=== PATIENT | female | born 1990 | race Two or more races ===

== ENCOUNTER 2023-10-13 08:50 | Emergency (ER) | payer OTHER, MEDICAID ==
[~2023-10-13] VITALS: Ht 160 cm; Wt 54.4 kg
[2023-10-13] MEDS ORDERED: CEPHALEXIN MONOHYDRATE 500 MG CAPSULE PO ONE (09:28)
[2023-10-13] MEDS: CEPHALEXIN MONOHYDRATE 500 MG CAPSULE PO ONE (09:30)
[2023-10-13 10:09] LABS: APPEARANCE,URINE CLEAR (CLEAR); BILIRUBIN,URINE NEGATIVE (NEGATIVE); BLOOD, URINE 1+ Ery/uL (NEGATIVE); COLOR,URINE YELLOW (YELLOW); KETONES,URINE NEGATIVE (NEGATIVE); LEUKOCYTE ESTERASE ,URINE TRACE (NEGATIVE); NITRITE, URINE NEGATIVE (NEGATIVE); PH,URINE 6.5 (5.0-8.0); PROTEIN,URINE NEGATIVE (NEGATIVE); UGLUCOSE NEGATIVE (NEGATIVE); UROBILINOGEN,URINE 0.2 EU/dL (0.2)
[2023-10-13 10:11] LABS: PREGNANCY TEST URINE QUAL NEGATIVE (NEGATIVE)
[2023-10-13 10:12] LABS: ADD URINE CULTURE NO; BACTERIA,URINE None seen /HPF (None Seen); SQUAMOUS EPITHELIAL CELL,UR Few /HPF (None Seen); WBC,URINE 0-2 /HPF (0-3)
[2023-10-13] MEDS ORDERED: CEPH500C2 PO (10:37)
[2023-10-13 10:48] VITALS: BP 102/70; TEMP 98.4; O2SAT 99
[2023-10-18] MEDS ORDERED: NITR100C6 PO (08:05)
== END 2023-10-13 10:48 | disposition home or self-care (01) ==
LOC: ER 09:14
DX: N39.0 Urinary tract infection, site not specified (principal); R30.0 Dysuria; R10.2 Pelvic and perineal pain; Z88.2 Allergy status to sulfonamides
CPT/HCPCS: 81001; 84703-TC; 87086-TC